=== PATIENT | female | born 1935 | race African-American/Black ===

== ENCOUNTER 2021-05-02 12:14 | Inpatient (IN) | payer OTHER, SELFPAY ==
[~2021-05-02] VITALS: Ht 154.9 cm; Wt 74.4 kg
--- NOTE | 2021-05-02 12:14 | NUR ---
Patient BIBA ALS from SNF, transferred to bed 8. RN evaluating the patient at bedside.
[2021-05-02 12:18] VITALS: BP 130/65
[2021-05-02] MEDS ORDERED: NACL 0.9% 1,000 ML IV SCH (12:20)
--- NOTE | 2021-05-02 12:30 | NUR ---
machine shop repair technician at bedside.
[2021-05-02] MEDS ORDERED: LORazepam 2 MG/ML VIAL IM/IVP ONE (12:55)
[2021-05-02] MEDS ORDERED: LORazepam 2 MG/ML VIAL IM ONE (12:55)
--- NOTE | 2021-05-02 13:00 | NUR ---
PT AGITATED UNABLE TO GET BLOOD, INSERT IV AND DO EKG. WILL CONTINUE TO MONITOR.
--- NOTE | 2021-05-02 13:03 | NUR ---
ATTEMPTED TO PREFORM AN EKG. PT REFUSED AND REMOVED LEADS AND ELECTRODES. ERMD NOTIFIED.
--- NOTE | 2021-05-02 13:22 | NUR ---
The patient's daughter and POA, Andria Steward, may be reached at [phone].
[2021-05-02 13:41] LABS: BASOPHILS % (AUTO) 0.8 % (0.0-2.0); EOSINOPHILS # (AUTO) 0.8 K/uL (0-0.4); EOSINOPHILS % (AUTO) 16.4 % (0.0-4.0); LYMPHOCYTES % (AUTO) 20.5 % (20.5-51.1); MEAN CORPUSCULAR HEMOGLOBIN 31 pg (27-31); MEAN CORPUSCULAR HGB CONC 33 g/dL (33-37); MEAN CORPUSCULAR VOLUME 94.7 fL (80-94); MONOCYTES # (AUTO) 0.5 K/uL (0.8-1.0); MONOCYTES % (AUTO) 10.2 % (1.7-9.3); NEUTROPHILS # (AUTO) 2.4 K/uL (1.8-7.7); NEUTROPHILS % (AUTO) 52.1 % (42.2-75.2); PLATELET COUNT (AUTO) 276 K/uL (140-450); RED BLOOD CELL COUNT(AUTO) 1.71 MIL/uL (4.20-5.40); RED CELL DISTRIBUTION WIDTH 16.9 % (11.6-13.7); WHITE BLOOD COUNT (AUTO) 4.7 K/uL (4.8-10.8)
[2021-05-02 13:47] LABS: HEMOGLOBIN 5.3 g/dL (12.0-16.0)
[2021-05-02 13:48] LABS: HEMATOCRIT 16.2 % (36-48)
[2021-05-02 14:02] LABS: PROTHROMBIN TIME 11.7 secs (10.8-13.4)
[2021-05-02 14:03] LABS: ALBUMIN 3.2 g/dL (3.4-5.0); ANION GAP 12.2 (8-16); ASPARTATE AMINOTRANSFERASE 20 U/L (15-37); CARBON DIOXIDE 25.5 mmol/L (21-32); CHLORIDE 109 mmol/L (98-107); CREATININE 0.7 mg/dL (0.6-1.3); GLUCOSE 118 mg/dL (74-106); POTASSIUM 3.7 mmol/L (3.5-5.1); SODIUM SERUM 143 mmol/L (136-145); TOTAL BILIRUBIN 0.2 mg/dL (0.0-1.0); UREA NITROGEN, BLOOD 32 mg/dL (7-18)
[2021-05-02] MEDS: NACL 0.9% 1,000 ML IV SCH (15:35)
[2021-05-02] MEDS ORDERED: ZOLPIDEM 5 MG TAB PO PRN (15:35)
[2021-05-02] MEDS ORDERED: LORazepam 2 MG/ML VIAL IM/IVP PRN (15:35)
[2021-05-02] MEDS ORDERED: MORPHINE SULFATE 2 MG/ML SYR IVP PRN (15:35)
[2021-05-02] MEDS ORDERED: ACETAMINOPHEN 325 MG TAB PO PRN (15:35)
[2021-05-02] MEDS ORDERED: ONDANSETRON 4 MG/2 ML VIAL IVP PRN (15:35)
[2021-05-02] MEDS ORDERED: DOCUSATE SODIUM 100 MG GELCAP PO PRN (15:35)
[2021-05-02] MEDS ORDERED: HYDROcodone/APAP 5/325 MG 1 TAB TAB PO PRN (15:35)
--- NOTE | 2021-05-02 15:37 | NUR ---
Notified Dr. Santana Adam of requested consultation.
[2021-05-02] MEDS ORDERED: HEPARIN PER PHARMACY MC PRN (15:40)
[2021-05-02 16:23] LABS: CHOL/HDL RATIO 1.8 (1-4.5); FREE T4 (FREE THYROXINE) 0.9 ng/dL (0.76-1.46); MAGNESIUM 1.8 mg/dL (1.8-2.4); PHOSPHORUS 3.1 mg/dL (2.5-4.9); THYROID STIMULATING HORMONE 3.24 uIU/mL (0.34-3.74)
[2021-05-02] MEDS ORDERED: hePARIN / DEXT 5% PREMIX 250 ML IV SCH (16:30)
--- NOTE | 2021-05-02 16:45 | NUR ---
Patient will be admitted to care of DR BARRIENTOS . Admited to TELE. Will go to room 120A. Belongings list completed. Report to LOREN FRAGOSO.
[2021-05-02 16:51] VITALS: BP 118/54
--- NOTE | 2021-05-02 16:51 | NUR ---
PT ARRIVED FROM THE ED ON GURNEY. PTS EYES CLOSED, NO SIGNS OF ACUTE DISTRESS. PT ALERT AND ORIENTED X 1, NAME. VITAL SIGNS WNL; 115/54, 52 HR, 100% O2, 14 RR, 98.1 TEMP. PT SHOWING VAHE ON FIELD SALES TRAINER. PT HAD A BOWEL MOVEMENT AND WAS CLEANED. PT HAS NO OPEN WOUNDS, SKIN INTACT. PT FLACC 0/10. PT HAS NO IV ACCESS, ORDER FOR A PICC LINE IN PLACE, CONSENT SIGNED. WAITING ON PICC LINE PERSONAL TO ARRIVE FOR PLACEMENT. UNABLE TO START HEPARIN DRIP OR START BLOOD TRANSFUSION UNTIL PICC LINE IS IN PLACE. PT ON CONTINUOS PULSE OX AND TELE MONITORING. PT ON ROOM AIR WITH NO SIGNS OF ACUTE DISTRESS SATING AT 100%. ALL SAFETY MEASURES IN PLACE, WILL CONTINUE TO MONITOR.
[2021-05-02] MEDS ORDERED: ASPI81CT51 PO (17:09)
[2021-05-02] MEDS ORDERED: LISI40TA8 PO (17:09)
[2021-05-02] MEDS ORDERED: CHOL500040 PO (17:09)
[2021-05-02] MEDS ORDERED: ATOR40TA PO (17:09)
[2021-05-02] MEDS ORDERED: ACET-1182 PO (17:09)
[2021-05-02] MEDS ORDERED: AMLO10TA PO (17:09)
[2021-05-02] MEDS ORDERED: QUET25TA PO (17:09)
[2021-05-02] MEDS ORDERED: MELO7.5T11 PO (17:09)
[2021-05-02] MEDS ORDERED: CLOP75TA55 PO (17:09)
[2021-05-02] MEDS ORDERED: DOCU-299 PO (17:09)
[2021-05-02] MEDS ORDERED: ACET-2619 PO (17:09)
[2021-05-02] MEDS ORDERED: BUS5 PO (17:09)
[2021-05-02] MEDS ORDERED: ESCI5TAB PO (17:09)
--- NOTE | 2021-05-02 17:41 | NUR ---
PT RESTING, STILL WAITING ON PICC LINE FOR PLACEMENT. PT IS RESTING WITH EYES CLOSE, CHEST RISING AND FALLING EVEN AND UNLABORED. ALL SAFETY MEASURES IN PLACE. CALL LIGHT WITHIN REACH. WILL CONTINUE TO MONITOR.
[2021-05-02 18:42] LABS: APPEARANCE,URINE CLEAR (CLEAR); BILIRUBIN,URINE NEGATIVE (NEGATIVE); BLOOD, URINE 1+ (NEGATIVE); COLOR,URINE YELLOW (YELLOW); LEUKOCYTE ESTERASE ,URINE TRACE (NEGATIVE); NITRITE, URINE NEGATIVE (NEGATIVE); PH,URINE 5.5 (5.0-9.0); UGLUCOSE NEGATIVE (NEGATIVE)
--- NOTE | 2021-05-02 18:46 | NUR ---
CAMMY FRAGOSO INITIATED IV ACCESS IN LEFT WRIST 22G, AND LEFT FOREARM 22G. BOTH IV SITES PATENT AND INTACT. 4 ATTEMPTS MADE. ABLE TO HOOK PT UP TO IV FLUIDS; NS @100ML/HR.
[2021-05-02 18:57] LABS: RBC,URINE 11-20 (MOD) /HPF (0-5)
[2021-05-02 19:02] LABS: BARBITURATE, URINE NEGATIVE ng/ml (NEG <=200); BENZODIAZEPINE, URINE NEGATIVE ng/mL (NEG <=200); CANNABINOID, URINE NEGATIVE ng/mL (NEG <=50); COCAINE, URINE NEGATIVE ng/mL (NEG <=300); OPIATE, URINE NEGATIVE ng/mL (NEG <=2000); PHENCYCLIDINE SCREEN,URINE NEGATIVE ng/mL (NEG <=25)
--- NOTE | 2021-05-02 19:24 | NUR ---
[facility], PT IS RESTING SATING AT 100%. ALL SAFETY MEASURES IN PLACE. WILL CONTINUE TO MONITOR.
--- NOTE | 2021-05-02 19:24 | NUR ---
RECEIVED PATIENT FROM AM SHIFT NURSE FOR CONTINUITY OF CARE. PATIENT LETHARGIC, UNABLE TO MAKE NEED KNOWN AT THIS TIME. RESPIRATIONS EVEN, UNLABORED. NO S/S RESPIRATORY DISTRESS. S1/S2 AUSCULTATED. TELE MONITORING. SKIN WARM, DRY. IV SITE TO LEFT FOREARM 22G PATENT/INTACT, INFUSING FLUIDS WELL. SALINE LOCK TO LEFT WRIT 22G PATENT/INTACT. ABDOMEN SOFT, NONTENDER, NONDISTENDED. BOWEL SOUNDS ACTIVE x4 QUADRANTS. PATIENT IS INCONTINENT OF B/B. PLAN OF CARE DISCUSSED. SAFETY PRECAUTIONS IN PLACE. CALL LIGHT IN REACH AT ALL TIMES.
--- NOTE | 2021-05-02 20:20 | NUR ---
1 UNIT OF PRBC STARTED. AFEBRILE. NO ADVERSE REACTION NOTED. FREQUENT ROUNDS BY ALL STAFF.
[2021-05-02] MEDS: ATORVASTATIN 20 MG TAB PO SCH (20:37)
[2021-05-02] MEDS: busPIRone 5 MG TAB PO SCH (20:37)
[2021-05-02 21:06] VITALS: BP 116/54
[2021-05-02] MEDS ORDERED: KETOROLAC 30 MG/ML VIAL IVP PRN (21:25)
--- NOTE | 2021-05-02 21:30 | NUR ---
PATIENT RESTING COMFORTABLY IN BED. CONTINUES ON BLOOD TRANSFUSION, TOLERATING WELL. CALL LIGHT IN REACH. SAFETY PRECAUTIONS IN PLACE.
--- NOTE | 2021-05-02 23:10 | NUR ---
1 UNIT OF PRBC COMPLETED WIT NO ADVERSE SIDE EFFECTS. PATIENT IS RESTING COMFORTABLY IN BED. CALL LIGHT IN REACH. SAFETY PRECAUTIONS IN PLACE.
--- NOTE | 2021-05-02 23:30 | NUR ---
INCONTINENT CARE RENDERED WITH TREE AND SHRUB WORKER AT BEDSIDE. NO S/S ACUTE DISTRESS. CALL LIGHT IN REACH. SAFETY PRECAUTIONS IN PLACE.
[2021-05-03] VITALS: BP 121/37
[2021-05-03] MEDS: NACL 0.9% 1,000 ML IV SCH ×2 (01:04→11:35)
--- NOTE | 2021-05-03 01:43 | NUR ---
PATIENT COMPLETED 2 UNITS OF PRBCS WITH NO ADVERSE REACTION. RESTING WELL IN BED. NO S/S ACUTE DISTRESS. CALL LIGHT IN REACH. SAFETY PRECAUTIONS IN PLACE.
--- NOTE | 2021-05-03 03:46 | NUR ---
MADE ROUNDS. PATIENT IS ASLEEP. NO S/S ACUTE DISTRESS. CALL LIGHT WITHIN REACH. SAFETY PRECAUTIONS IN PLACE.
[2021-05-03 04:00] VITALS: BP 126/75
[2021-05-03 04:11] LABS: BASOPHILS % (AUTO) 0.3 % (0.0-2.0); EOSINOPHILS # (AUTO) 0.5 K/uL (0-0.4); EOSINOPHILS % (AUTO) 5.1 % (0.0-4.0); HEMATOCRIT 20.4 % (36-48); LYMPHOCYTES # (AUTO) 0.7 K/uL (2.5-16.5); LYMPHOCYTES % (AUTO) 7.1 % (20.5-51.1); MEAN CORPUSCULAR HEMOGLOBIN 30 pg (27-31); MEAN CORPUSCULAR HGB CONC 34 g/dL (33-37); MEAN CORPUSCULAR VOLUME 90.8 fL (80-94); MONOCYTES % (AUTO) 9.6 % (1.7-9.3); NEUTROPHILS % (AUTO) 77.9 % (42.2-75.2); PLATELET COUNT (AUTO) 222 K/uL (140-450); RED BLOOD CELL COUNT(AUTO) 2.25 MIL/uL (4.20-5.40); RED CELL DISTRIBUTION WIDTH 15.8 % (11.6-13.7); WHITE BLOOD COUNT (AUTO) 10.3 K/uL (4.8-10.8)
[2021-05-03 04:16] LABS: HEMOGLOBIN 6.8 g/dL (12.0-16.0)
[2021-05-03 05:08] LABS: ANION GAP 9.4 (8-16); CARBON DIOXIDE 27.6 mmol/L (21-32); CHLORIDE 112 mmol/L (98-107); CREATININE 0.6 mg/dL (0.6-1.3); GLUCOSE 89 mg/dL (74-106); SODIUM SERUM 145 mmol/L (136-145); UREA NITROGEN, BLOOD 28 mg/dL (7-18)
[2021-05-03 05:16] LABS: PHOSPHORUS 3.2 mg/dL (2.5-4.9)
--- NOTE | 2021-05-03 05:28 | NUR ---
INCONTINENT CARE RENDERED WITH AGRONOMY TEACHER AT BEDSIDE. NO S/S ACUTE DISTRESS. CALL LIGHT IN REACH. SAFETY PRECAUTIONS IN PLACE.
--- NOTE | 2021-05-03 06:17 | NUR ---
1 UNIT OF PRBC STARTED. AFEBRILE. NO S/S ADVERSE REACTION. PATIENT AWAKE AND ABLE TO MAKE SIMPLE NEEDS KNOWN. CALL LIGHT IN REACH. SAFETY PRECAUTIONS IN PLACE.
--- NOTE | 2021-05-03 07:10 | NUR ---
RECEIVED REPORT FROM THERAPIST PHYSICAL RN FOR CONTINUITY OF CARE. PATIENT IS CONFUSED AND DROWSY. SR-SB ON MONITOR. ON RA. IVS CLEAN, DRY, AND INTACT ON LW 22 G SALINE LOCKED, AND LFA 22 G TRANSFUSING BLOOD AT 100 ML/HR. CLEARANCE REP AND SAFETY MEASURES IN PLACE. BED IN LOW POSITION, BED LOCKED, AND HEAD OF BED AT 30 DEGREES. WILL CONTINUE TO MONITOR.
[2021-05-03 08:00] VITALS: BP 155/70
[2021-05-03] MEDS ORDERED: NON-FORMULARY ITEM (Lisinopril 40 MG) PO SCH (09:00)
[2021-05-03] MEDS ORDERED: ASPIRIN 81 MG TAB.CHEW PO SCH (09:00)
[2021-05-03] MEDS ORDERED: amLODIPine 5 MG TAB PO SCH (09:00)
[2021-05-03] MEDS ORDERED: lisinopriL 20 MG TAB PO SCH (09:00)
[2021-05-03] MEDS ORDERED: NON-FORMULARY ITEM (Meloxicam* (Mobic*) 1 TAB) PO SCH (09:00)
[2021-05-03] MEDS ORDERED: CLOPIDOGREL 75 MG TAB PO SCH (09:00)
--- NOTE | 2021-05-03 09:09 | NUR ---
PATIENT HAS BEEN SCREENED AND CATEGORIZED LOW NUTRITION RISK. PATIENT WILL BE SEEN WITHIN 7 DAYS OF ADMISSION. 05/09/[address]
[2021-05-03] MEDS: busPIRone 5 MG TAB PO SCH ×2 (09:34→21:27)
[2021-05-03] MEDS: QUEtiapine FUMARATE 25 MG TAB PO SCH (09:35)
[2021-05-03] MEDS ORDERED: CRUSHER, PILL MC ONE (09:36)
[2021-05-03] MEDS: ESCITALOPRAM 20 MG TAB PO SCH (09:38)
--- NOTE | 2021-05-03 09:40 | NUR ---
ADMINISTERED SCHEDULED AM MEDICATIONS. ORAL CARE, HYGIENE CARE, INCONTINENCE CARE, AND CHG BATH PROVIDED. WILL CONTINUE TO MONITOR.
--- NOTE | 2021-05-03 10:05 | NUR ---
CATHERINE OG, DAUGHTER CALLED FOR AN UPDATE. DAUGHTER WAS UPDATED ON CONDITION AND STATUS. ALL QUESTIONS WERE ANSWERED TO BEST OF KNOWLEDGE. WILL CONTINUE TO MONITOR.
--- NOTE | 2021-05-03 11:26 | NUR ---
CRITICAL LAB, TROP 0.219, DR. BARRIENTOS AND DR. VELASQUEZ AWARE. NO CHANGE IN ORDERS. WILL CONTINUE TO MONITOR.
[2021-05-03 11:39] LABS: HEMATOCRIT 25.5 % (36-48); HEMOGLOBIN 8.6 g/dL (12.0-16.0)
[2021-05-03 12:00] VITALS: BP 124/62
--- NOTE | 2021-05-03 12:05 | NUR ---
Hold PT evaluation today due to low Hgb level and high Troponin. Nurse notified.
--- NOTE | 2021-05-03 13:52 | NUR ---
CHECKED ON PATIENT, NO SIGN OF DISTRESS AND FLACC 0. WILL CONTINUE TO MONITOR.
[2021-05-03 16:00] VITALS: BP 120/66
--- NOTE | 2021-05-03 16:55 | NUR ---
PATIENTS DAUGHTER CALLED STATING TALKED TO PATIENT, SAYING SHES IN PAIN, PAGED DR BARRIENTOS, ORDERED PAIN MEDS. WILL CONTINUE TO MONITOR.
[2021-05-03] MEDS ORDERED: KETOROLAC 30 MG/ML VIAL IVP PRN (17:10)
[2021-05-03] MEDS: LACTULOSE 20 GM/30 ML UDC PO SCH ×2 (17:24→21:27)
[2021-05-03] MEDS: SENNA 8.6 MG TAB PO SCH (17:25)
[2021-05-03] MEDS: MORPHINE SULFATE 2 MG/ML SYR IVP PRN (17:25)
--- NOTE | 2021-05-03 18:45 | NUR ---
CALLED PATIENT'S DAUGHTER, FRENCH GILLIAM, THAT YOU WOULD PREFER TO DO COLOSCOPY EDG AT AN OUTPATIENT. STATES PATIENT IS STRESSED AND DOES NOT WANT TO ADD ON MORE AT THIS TIME.
--- NOTE | 2021-05-03 19:09 | NUR ---
ENDORSED TO BRUCE FRAGOSO FOR CONTINUITY OF CARE.
--- NOTE | 2021-05-03 19:09 | NUR ---
RECEIVED PATIENT FROM RN FOR CONTINUITY OF CARE. ALERT AND ABLE TO MAKE SIMPLE NEEDS KNOWN. RESPIRATIONS EVEN, UNLABORED. NO S/S RESPIRATORY DISTRESS. S1/S2 AUSCULTATED. TELE MONITORING. SKIN WARM, DRY. IV SITE TO RIGHT WRIST 22G PATENT/INTACT, INFUSING FLUIDS WELL. NO C/O PAIN. NO S/S ACUTE DISTRESS. ABDOMEN SOFT, NONTENDER, NONDISTENDED. BOWEL SOUNDS ACTIVE X4 QUADRANTS. PATIENT IS INCONTINENT OF B/B. PLAN OF CARE DISCUSSED. SAFETY PRECAUTIONS IN PLACE. CALL LIGHT IN REACH AT ALL TIMES.
[2021-05-03 20:00] VITALS: BP 135/76
[2021-05-03] MEDS: ATORVASTATIN 20 MG TAB PO SCH (21:27)
--- NOTE | 2021-05-03 21:30 | NUR ---
DUE MEDS GIVEN. PATIENT RESTING COMFORTABLY IN BED. CALL LIGHT IN REACH. SAFETY PRECAUTIONS IN PLACE.
--- NOTE | 2021-05-03 23:37 | NUR ---
INCONTINENT CARE RENDERED WITH SNAP ATTACHER AT BEDSIDE. NO S/S ACUTE DISTRESS. CALL LIGHT IN REACH. SAFETY PRECAUTIONS IN PLACE.
[2021-05-04] VITALS: BP 139/60
--- NOTE | 2021-05-04 01:39 | NUR ---
MADE ROUNDS. PATIENT IS ASLEEP. CALL LIGHT IN REACH. SAFETY PRECAUTIONS IN PLACE.
--- NOTE | 2021-05-04 03:00 | NUR ---
INCONTINENT CARE RENDERED WITH SIGN WRITER HAND AT BEDSIDE.
[2021-05-04 04:00] VITALS: BP 145/75
--- NOTE | 2021-05-04 05:01 | NUR ---
PATIENT IS ASLEEP.
[2021-05-04 05:58] LABS: ANION GAP 11.9 (8-16); CARBON DIOXIDE 25.5 mmol/L (21-32); CHLORIDE 112 mmol/L (98-107); CREATININE 0.6 mg/dL (0.6-1.3); GLUCOSE 83 mg/dL (74-106); POTASSIUM 3.4 mmol/L (3.5-5.1); SODIUM SERUM 146 mmol/L (136-145); UREA NITROGEN, BLOOD 20 mg/dL (7-18)
[2021-05-04 06:05] LABS: BASOPHILS % (AUTO) 0.3 % (0.0-2.0); EOSINOPHILS # (AUTO) 0.9 K/uL (0-0.4); EOSINOPHILS % (AUTO) 7.9 % (0.0-4.0); HEMATOCRIT 24.4 % (36-48); LYMPHOCYTES # (AUTO) 0.6 K/uL (2.5-16.5); LYMPHOCYTES % (AUTO) 5.5 % (20.5-51.1); MEAN CORPUSCULAR HEMOGLOBIN 30 pg (27-31); MEAN CORPUSCULAR HGB CONC 33 g/dL (33-37); MEAN CORPUSCULAR VOLUME 91.9 fL (80-94); MONOCYTES % (AUTO) 9.2 % (1.7-9.3); NEUTROPHILS # (AUTO) 8.7 K/uL (1.8-7.7); NEUTROPHILS % (AUTO) 77.1 % (42.2-75.2); PLATELET COUNT (AUTO) 251 K/uL (140-450); RED BLOOD CELL COUNT(AUTO) 2.66 MIL/uL (4.20-5.40); RED CELL DISTRIBUTION WIDTH 15.9 % (11.6-13.7); WHITE BLOOD COUNT (AUTO) 11.3 K/uL (4.8-10.8)
[2021-05-04 06:09] LABS: MAGNESIUM 1.9 mg/dL (1.8-2.4); PHOSPHORUS 2.9 mg/dL (2.5-4.9)
--- NOTE | 2021-05-04 07:35 | NUR ---
RECEIVED BEDSIDE REPORT FROM NIGHTSHIFT NURSE. PT RESTING IN BED. ABLE TO MAKE SOME NEEDS KNOWN. RESPIRATIONS EVEN AND UNLABORED WITH NO SOB OR RESPIRATORY DISTRESS. SKIN WARM AND DRY TO TOUCH. SAFETY MEASURES IN PLACE. WILL CONTINUE TO MONITOR
--- NOTE | 2021-05-04 07:41 | NUR ---
PT WAS SEEN FOR DYSPHAGIA. PT WAS ABLE TO SAFELY SWALLOW PUREE DIET WITH THIN LIQUID WITHOUT S/S OF ASPIRATION. RECOMMENDATION PUREE DIET WITH THIN LIQUID
[2021-05-04 08:00] VITALS: BP 147/71
--- NOTE | 2021-05-04 08:53 | NUR ---
PT. ADMITTED WITH LOW PADMA SCALE AT HIGH RISK, CONTINUE TO FOLLOW PRESSURE INJURY PREVENTION INTERVENTIONS. -TURN AND REPOSITION PATIENT Q 2H -ASSESS AND MONITOR SKIN CONDITION DURING POSITION CHANGE -OFFLOAD BILATERAL HEELS BY PLACING PILLOWS UNDER CALVES AT ALL TIMES, UNLESS OTHERWISE CONTRAINDICATED -PRESSURE REDISTRIBUTION BY PLACING PILLOWS AND OFFLOADING SACRALCOCCYX -KEEP SKIN CLEAN AND DRY AT ALL TIMES.
[2021-05-04] MEDS: LACTULOSE 20 GM/30 ML UDC PO SCH ×4 (09:00→21:00)
[2021-05-04] MEDS: SENNA 8.6 MG TAB PO SCH ×3 (09:00→17:00)
[2021-05-04] MEDS: ESCITALOPRAM 20 MG TAB PO SCH (09:38)
[2021-05-04] MEDS: QUEtiapine FUMARATE 25 MG TAB PO SCH (09:39)
[2021-05-04] MEDS: busPIRone 5 MG TAB PO SCH ×2 (09:39→21:00)
--- NOTE | 2021-05-04 09:45 | NUR ---
ADMINISTERED SCHED MED PRESCRIBED PER MD ORDER. PT TOLERATED WELL. MEDICATION EDUCATION PERFORMED. PT CONFUSED AND UNABLE TO VERBALIZE UNDERSTANDING. SAFETY MEASURES IN PLACE. WILL CONTINUE TO MONITOR
--- NOTE | 2021-05-04 10:15 | NUR ---
PT PULLED OUT IV AND IS A HARD STICK AFTER NUMEROUS ATTEMPTS. PICC LINE NURSE CALLED AND WILL BE HERE SOON. SAFETY MEASURES IN PLACE. WILL CONTINUE TO MONITOR
--- NOTE | 2021-05-04 11:15 | NUR ---
SARAN THE PICC LINE NURSE AT [facility]. TIME OUT PERFORMED. PT HAS NEWLY INSERTED MID LINE IN BASSAM. US AT BEDSIDE. PT TOLERATED WELL. SAFETY MEASURES IN PLACE. WILL CONTINUE TO MONITOR
[2021-05-04] MEDS: NACL 0.9% 1,000 ML IV SCH (11:49)
[2021-05-04] MEDS ORDERED: KETOROLAC 15 MG/ML VIAL IVP PRN (11:50)
[2021-05-04 12:07] LABS: FOLIC ACID 10.5 ng/mL (>3.0)
--- NOTE | 2021-05-04 14:00 | NUR ---
DAUGHTER CALLED AND WANTED AN UPDATE. UPDATE GIVEN. SAFETY MEASURES IN PLACE. WILL CONTINUE TO MONITOR
[2021-05-04 16:00] VITALS: BP 104/65
--- NOTE | 2021-05-04 16:00 | NUR ---
WENT TO CALL FOR REPORT AT [facility] BUT THE PREASSEMBLER PRINTED CIRCUIT BOARD SAID THE NURSE IS BUSY. LEFT NAME AND PHONE NUMBER AND TO CALL BACK IN 15 MIN. WILL CONTINUE TO MONITOR Addendum: 05/04/21 at 1737 by Janay Negro RN DISREGARD NOTE
--- NOTE | 2021-05-04 16:15 | NUR ---
CALLED TO GIVE REPORT AGAIN AT [facility] YET THE TRAY SETTER SAID THE NURSE IS STILL BUSY. SAFETY MEASURES IN PLACE. WILL CONTINUE TO MONITOR Addendum: 05/04/21 at 1737 by Janay Negro RN DISREGARD NOTE
--- NOTE | 2021-05-04 16:15 | NUR ---
PT ASLEEP IN BED. RESPONSIVE TO VERBAL AND TACTILE STIMULI. SAFETY MEASURES IN PLACE. WILL CONTINUE TO MONITOR
--- NOTE | 2021-05-04 16:30 | NUR ---
TRANSPORT TEAM HERE AT BEDSIDE TO TAKE PATIENT. PT SIGNED APPROPRIATE DOCUMENTS. INSTRUCTED PT TO VISIT ED FOR ANY SIGNS OF DISTRESS. PT VERBALIZED UNDERSTANDING. REMOVED INTACT IV CANNULA. RETURNED TELE MONITOR AND RETURNED TO SERVICES MANAGER. PT UP TO DATE ON VACCINES. GAVE PATIENT SURGICAL MASK. CHART ALREADY MADE FOR KARINE TRIPATHI. TRIED CALLING KARINE TRIPATHI AGAIN FOR REPORT BUT THE WOOD ENGRAVER SAID THAT SHE IS BUSY. LEFT PHONE NUMBER FOR NURSE TO CALL ONCE SHE IS READY. GATHERED ALL OF PATIENTS BELONGINGS. PT STABLE TO GO BACK TO KARINE TRIPATHI Addendum: 05/04/21 at 1737 by Janay Negro RN DISREGARD NOTE
[2021-05-04] MEDS: lisinopriL 10 MG TAB PO SCH ×2 (17:00→21:35)
--- NOTE | 2021-05-04 17:15 | NUR ---
PT ATTEMPTING TO CLIMB OUT OF BED. PT AAOX1-2. EDUCATED PT TO NOT GET OUT OF BED. PT CONFUSED. BED ALARM ON. SAFETY MEASURES IN PLACE. WILL CONTINUE TO MONITOR
--- NOTE | 2021-05-04 18:34 | NUR ---
DAUGHTER AT BEDSIDE WANTING ANOTHER UPDATE. UPDATE GIVEN. REQUESTING DR. BARRIENTOS, DR. BARRIENTOS AT BEDSIDE TALKING TO FAMILY FOR MORE THAN [address] MIN[address] ME[address] WILL CONTINUE TO MONITOR
--- NOTE | 2021-05-04 19:30 | NUR ---
ENDORSED TO NIGHTSHIFT NURSE AT BEDSIDE FOR CONTINUITY OF CARE. PT IS STABLE
--- NOTE | 2021-05-04 19:31 | NUR ---
RECEIVED BEDSIDE ENDORSEMENT FROM AM SHIFT RN. DAUGHTER IS AT BEDSIDE, ON ROOM AIR, AAOX1 TO PERSON, HAS HX OF DEMENTIA, BEDREST, W/ BASSAM MIDLINE, INTACT, SAFETY MEASURES IN PLACE, PLAN OF CARE DISCUSSED, WILL CONTINUE TO MONITOR, CALL LIGHT WITHIN REACH.
[2021-05-04] MEDS: MORPHINE SULFATE 2 MG/ML SYR IVP PRN (20:41)
[2021-05-04] MEDS: ATORVASTATIN 20 MG TAB PO SCH (21:34)
--- NOTE | 2021-05-04 21:46 | NUR ---
BUSPAR NOT GIVEN, PER DAUGHTER REQUEST, LACTULOSE NOT GIVEN, PT HAD A LARGE BM. LISINOPRIL GIVEN BECAUSE IT WASN'T GIVEN THIS AM, PER DAUGHTER REQUEST, DR. BARRIENTOS AWARE AND SAID OK TO GIVE.
--- NOTE | 2021-05-04 23:05 | NUR ---
PERINEAL CARE RENDERED, KEPT CLEAN AND DRY, APPLIED LOTION TO BACK, CHEST AND ARMS. KEPT COMFORTABLE, CALL LIGHT WITHIN REACH.
[2021-05-05] VITALS: BP 140/64
--- NOTE | 2021-05-05 01:00 | NUR ---
ASLEEP, RESPIRATION EVEN AND UNLABORED, NOTED CHEST RISE. WILL MONITOR, CALL LIGHT WITHIN REACH.
--- NOTE | 2021-05-05 03:06 | NUR ---
REPOSITIONED, GAVE WARM BLANKET, KEPT COMFORTABLE, CALL LIGHT WITHIN REACH.
--- NOTE | 2021-05-05 05:15 | NUR ---
PT ASLEEP, NOTED CHEST RISE, CALL LIGHT WITHIN REACH.
[2021-05-05 05:52] LABS: ANION GAP 12.6 (8-16); CARBON DIOXIDE 26.8 mmol/L (21-32); CHLORIDE 112 mmol/L (98-107); CREATININE 0.7 mg/dL (0.6-1.3); GLUCOSE 125 mg/dL (74-106); POTASSIUM 3.4 mmol/L (3.5-5.1); SODIUM SERUM 148 mmol/L (136-145); UREA NITROGEN, BLOOD 19 mg/dL (7-18)
[2021-05-05 05:54] LABS: BASOPHILS % (AUTO) 0.4 % (0.0-2.0); EOSINOPHILS # (AUTO) 0.8 K/uL (0-0.4); EOSINOPHILS % (AUTO) 6.7 % (0.0-4.0); HEMATOCRIT 25.6 % (36-48); HEMOGLOBIN 8.4 g/dL (12.0-16.0); LYMPHOCYTES # (AUTO) 1.1 K/uL (2.5-16.5); LYMPHOCYTES % (AUTO) 9.3 % (20.5-51.1); MAGNESIUM 1.9 mg/dL (1.8-2.4); MEAN CORPUSCULAR HEMOGLOBIN 30 pg (27-31); MEAN CORPUSCULAR HGB CONC 33 g/dL (33-37); MEAN CORPUSCULAR VOLUME 92.1 fL (80-94); MONOCYTES # (AUTO) 1.5 K/uL (0.8-1.0); MONOCYTES % (AUTO) 12.5 % (1.7-9.3); NEUTROPHILS # (AUTO) 8.6 K/uL (1.8-7.7); NEUTROPHILS % (AUTO) 71.1 % (42.2-75.2); PHOSPHORUS 2.6 mg/dL (2.5-4.9); PLATELET COUNT (AUTO) 249 K/uL (140-450); RED BLOOD CELL COUNT(AUTO) 2.78 MIL/uL (4.20-5.40); WHITE BLOOD COUNT (AUTO) 12.1 K/uL (4.8-10.8)
[2021-05-05] MEDS ORDERED: POTASSIUM CHLORIDE 10 MEQ TABER PO SCH (07:30)
--- NOTE | 2021-05-05 07:30 | NUR ---
STABLE. BEDSIDE ENDORSEMENT GIVEN TO AM SHIFT RN FOR CONTINUITY OF CARE.
[2021-05-05 08:00] VITALS: BP 141/77
[2021-05-05] MEDS ORDERED: POTASSIUM CHLORIDE 20% 40 MEQ/15 ML UDC PO SCH (08:00)
--- NOTE | 2021-05-05 08:30 | NUR ---
DR MANNING AT BEDSIDE FOR EVAL, REPORTED OF ITCHNESS, ORDER RECEIVED.
[2021-05-05] MEDS ORDERED: HYDROCORTISONE 1% CRM 30 GM TUBE TP PRN (08:40)
[2021-05-05] MEDS: ESCITALOPRAM 20 MG TAB PO SCH (09:02)
[2021-05-05] MEDS: NACL 0.9% 1,000 ML IV SCH (09:02)
[2021-05-05] MEDS: QUEtiapine FUMARATE 25 MG TAB PO SCH (09:03)
--- NOTE | 2021-05-05 09:05 | NUR ---
EATING BREAKFAST WITH CLOCK MAKER ASSIST, MEDICATION GIVEN PER ORDER PT GUERRERO WELL.
[2021-05-05] MEDS ORDERED: CEPH250C16 PO (10:36)
--- NOTE | 2021-05-05 10:44 | NUR ---
BEDBATH GIVEN WITH SWEATBAND CUTTING MACHINE OPERATOR, HYDROCORTISONE CREAM APPLIED TO ITCHY AREA ON ARMS, SHOULDER, NECK, CHEST, SIDES, BACK.
--- NOTE | 2021-05-05 10:51 | NUR ---
PT C/O RIGHT SHOULDER AND BACK PAIN, WANTS PAIN MED BEFORE PT, TORADOL GIVEN PER PRN ORDER.
--- NOTE | 2021-05-05 10:52 | NUR ---
DC PLANNING: SPOKE WITH PT'S DAUGHTER DISCUSSED THE ISSUES AND CONCERN FOR HER MOM NOT GETTING ENOUGH CARE AND WANTED HER MOM TO GO TO SNF WHICH IS CLOSER TO [place] WHERE SHE LIVES. PER FRENCH HER 1ST CHOICE IN [place] [facility] [facility] AND [facility]. CALLED KRISTI SINGH LEFT A MESSAGE. CM TO FOLLOW Addendum: 05/05/21 at 1617 by Francie Burk RN DC PLANNING: SPOKE WITH KRISTI SINGH STATED THERE ARE NO SNF CONTRACTED FOR THE 3 PLACES. PT CAN GO TO [facility], [facility] AND [facility]. CALLED PT DAUGHTER PROVIDE THE 3 CHOICES PER JILL CHOSE [facility]. KRISTI PROVIDE AUTH FOR SNF AND TRANSPORT. #[id number] . PT CAN GO TO ROOM # 257A PT WILL BE DC ONCE CARDIO CLEARS PT. MAXINE TO FOLLOW
--- NOTE | 2021-05-05 11:41 | NUR ---
ON TELE MONITOR, PT HAS SLOW AFIB WITH OCCASIONAL LONG PAUSE, HR DIPS DOWN LOW 39, BP WNL, DR MANNING NOTIFIED, EKG ORDER RECEIVED.
[2021-05-05 12:00] VITALS: BP 114/68
--- NOTE | 2021-05-05 12:25 | NUR ---
ELIDA HERRERA AT BEDSIDE
--- NOTE | 2021-05-05 14:02 | NUR ---
PT SLEEPING QUIETLY IN NO ACUTE DISTRESS AROUSES TO VOICE.
[2021-05-05 16:00] VITALS: BP 102/58
--- NOTE | 2021-05-05 16:02 | NUR ---
DR ADAMS AT BEDSIDE, NOTIFIED OF OCCASIONAL DIP IN HEART RATE TO 34 AFIB.
--- NOTE | 2021-05-05 16:30 | NUR ---
PER RATE CLERK ROBERT, PT'S DAUGHTER REFUSES THE [facility], HOLD DC AT THIS TIME, DR MANNING AWARE
--- NOTE | 2021-05-05 19:25 | NUR ---
RECEIVED REPORT FROM AM NURSE. PATIENT AWAKE IN BED RESTING. IVF OF NS AT 20 ML/HR ON THE BASSAM MIDLINE INFUSING WELL. NO SOB NOTED. DENIES PAIN. WILL CONTINUE TO MONITOR.
--- NOTE | 2021-05-05 22:05 | NUR ---
ADMINISTERED MEDS PER MD ORDERED. PATIENT IS ITCHING , APPLIED HYDROCORTISONE CREAM ON HER BACK .
[2021-05-05] MEDS: ATORVASTATIN 20 MG TAB PO SCH (22:07)
[2021-05-05] MEDS: busPIRone 5 MG TAB PO SCH (22:08)
--- NOTE | 2021-05-06 02:55 | NUR ---
MADE ROUNDS, PATIENT SLEEPING.
--- NOTE | 2021-05-06 04:35 | NUR ---
PATIENT PULLED OUT MIDLINE. INSERTED IV LINE ON THE LEFT FOREARM, WRAP WITH KERLIX.
--- NOTE | 2021-05-06 07:17 | NUR ---
ENDORSED TO AM NURSE FOR CONTINUITY OF CARE. PATIENT STABLE.
--- NOTE | 2021-05-06 07:35 | NUR ---
BEDSIDE REPORT RECEIVED FROM LAYBOY TENDER NURSE, PT SLEEPING QUIETLY IN NO ACUTE DISTRESS, AROUSES TO VOICE, ORIENTED TO SELF, PT DENIES PAIN, FOLLOWS COMMANDS, RESPEVEN, UNLABORED, ON RA, SKIN WARM DRY COLOR WNL, CAP REFILL < 3 SEC, PIV TO LFA, SITE WNL, ABD SOFT, NON DISTENDED, PLAN OF CARE REVIEWED, ALL SAFETY MEASURES IN PLACE, WILL CONTINUE TO MONTIOR
[2021-05-06 08:00] VITALS: BP 158/69
[2021-05-06] MEDS: QUEtiapine FUMARATE 25 MG TAB PO SCH (08:32)
[2021-05-06] MEDS: lisinopriL 10 MG TAB PO SCH (08:32)
[2021-05-06] MEDS: ESCITALOPRAM 20 MG TAB PO SCH (08:32)
--- NOTE | 2021-05-06 08:45 | NUR ---
AM MEDS GIVEN CRUSHED WITH PUREE BREAKFAST, GUERRERO 75% OF BREAKFAST WITH ASSIST FEEDING, TYLENOL GIVEN FOR C/O TORRES
--- NOTE | 2021-05-06 08:55 | NUR ---
PT AT BEDSIDE
--- NOTE | 2021-05-06 09:05 | NUR ---
DR MANNING AT BS
--- NOTE | 2021-05-06 10:17 | NUR ---
[place] [phone] CONTACTED FOR CELL TENDER TIME, RN ER NOT AVAILABLE NOW, WILL CALL US BACK PER WYATT.
--- NOTE | 2021-05-06 10:21 | NUR ---
DAUGHTER FRENCH UPDATED WITH PT CONDITION AND PLAN OF CARE
[2021-05-06 11:00] VITALS: BP 138/68
--- NOTE | 2021-05-06 11:20 | NUR ---
PT ASSITED TO WHEEL CHAIR AND TO THE VAN, TAKEN BACK TO [facility] WITH THEIR NETWORK/TELECOM ENGINEER.
[2021-05-06 11:30] LABS: BASOPHILS % (AUTO) 0.2 % (0.0-2.0); EOSINOPHILS # (AUTO) 1.3 K/uL (0-0.4); EOSINOPHILS % (AUTO) 16.7 % (0.0-4.0); HEMATOCRIT 23.4 % (36-48); HEMOGLOBIN 7.7 g/dL (12.0-16.0); LYMPHOCYTES # (AUTO) 0.6 K/uL (2.5-16.5); LYMPHOCYTES % (AUTO) 8.2 % (20.5-51.1); MEAN CORPUSCULAR HEMOGLOBIN 31 pg (27-31); MEAN CORPUSCULAR HGB CONC 33 g/dL (33-37); MEAN CORPUSCULAR VOLUME 93.1 fL (80-94); MONOCYTES # (AUTO) 0.9 K/uL (0.8-1.0); NEUTROPHILS % (AUTO) 63.9 % (42.2-75.2); PLATELET COUNT (AUTO) 242 K/uL (140-450); RED BLOOD CELL COUNT(AUTO) 2.51 MIL/uL (4.20-5.40); RED CELL DISTRIBUTION WIDTH 16.2 % (11.6-13.7); WHITE BLOOD COUNT (AUTO) 7.8 K/uL (4.8-10.8)
[2021-05-06 11:40] LABS: ANION GAP 14.2 (8-16); CARBON DIOXIDE 24.6 mmol/L (21-32); CHLORIDE 113 mmol/L (98-107); CREATININE 0.6 mg/dL (0.6-1.3); GLUCOSE 127 mg/dL (74-106); POTASSIUM 3.8 mmol/L (3.5-5.1); SODIUM SERUM 148 mmol/L (136-145); UREA NITROGEN, BLOOD 22 mg/dL (7-18)
[2021-05-06 11:41] LABS: MAGNESIUM 1.9 mg/dL (1.8-2.4); PHOSPHORUS 2.8 mg/dL (2.5-4.9)
--- NOTE | 2021-05-06 11:46 | NUR ---
CALLED DAUGHTER FRENCH AND KARINE DUBON WITH DISCHARGE INSTRUCTION. PER WYATT, THEY WILL HAVE INNOVAGE TAKE CARE OF DISCHARGE MEDS AND FOLLOW UP.
== END 2021-05-06 11:22 | DRG 377 ==
LOC: MED 12:14 → MTU 15:30
PROVIDERS: ADMIT Family Medicine; ATTEND Family Medicine
PROC: 30233N1 Transfusion of Nonautologous Red Blood Cells into Peripheral Vein, Percutaneous Approach (ICD-10-PCS; principal; 2021-05-02)
PROC: 05HY33Z Insertion of Infusion Device into Upper Vein, Percutaneous Approach (ICD-10-PCS; 2021-05-04)
PROC: B54MZZA Ultrasonography of Right Upper Extremity Veins, Guidance (ICD-10-PCS; 2021-05-04)
DX: K92.2 Gastrointestinal hemorrhage, unspecified (principal); I21.A1 Myocardial infarction type 2; E44.1 Mild protein-calorie malnutrition; D62 Acute posthemorrhagic anemia; Z20.822 Contact with and (suspected) exposure to COVID-19; F03.90 Unspecified dementia, unspecified severity, without behavioral disturbance, psychotic disturbance, mood disturbance, and anxiety; I10 Essential (primary) hypertension; I25.10 Atherosclerotic heart disease of native coronary artery without angina pectoris; I48.91 Unspecified atrial fibrillation; E78.5 Hyperlipidemia, unspecified; F29 Unspecified psychosis not due to a substance or known physiological condition; Z88.5 Allergy status to narcotic agent; Z88.0 Allergy status to penicillin; Z88.8 Allergy status to other drugs, medicaments and biological substances; Z86.73 Personal history of transient ischemic attack (TIA), and cerebral infarction without residual deficits; Z68.31 Body mass index [BMI] 31.0-31.9, adult
CPT/HCPCS: 36415; 36430; 71045; 73200; 80048; 80053; 80305; 81001; 82150; 82607; 82728; 82746; 82977; 83036; 83540; 83690; 83735; 83880; 84100; 84439; 84443; 84484; 85018; 85025; 85045; 85610; 85730; 86886; 86900; 86901; 86920; 87081; 87086; 92610; 92700; 93005; 96372; 97110; 97112; 97163-GP; 97530; 99285; J1885; J2060; J2270; P9016

== ENCOUNTER 2022-04-14 20:27 | Emergency (ER) | payer OTHER ==
[~2022-04-14] VITALS: Ht 162.6 cm; Wt 49.9 kg
[~2022-04-14 20:27] MED LIST: ACET-1182 PO; AMLO10TA PO; ASPI81CT51 PO; ATOR40TA PO; BUS5 PO; CEPH250C16 PO; CHOL500040 PO; CLOP75TA55 PO; DOCU-299 PO; ESCI5TAB PO; LISI40TA8 PO; MELO7.5T11 PO; QUET25TA PO
--- NOTE | 2022-04-14 20:27 | NUR ---
2022: Pt arrived with BVM in place and and compressions being intitated by [facility]. MAICO Evans, RT, EMT at bedside.
--- NOTE | 2022-04-14 20:30 | NUR ---
Time of called by MAICO Evans.
--- NOTE | 2022-04-14 20:37 | NUR ---
[facility] called and demographics given, per dispatch will call back for further details.
--- NOTE | 2022-04-14 20:40 | NUR ---
[facility] called and spoke with Nancy. Per Nancy body was released and case # [id number].
--- NOTE | 2022-04-14 20:54 | NUR ---
MAICO Evans able to get a hold of daughter/georgie Ayers and notified her of patient .
--- NOTE | 2022-04-14 20:56 | NUR ---
Spoke with Deputy Webb from [facility] to give further information on patient, to call back later.
--- NOTE | 2022-04-14 21:17 | NUR ---
Spoke with Sarahi Webb and body was released by [facility]. Reference # [id number].
--- NOTE | 2022-04-14 22:14 | NUR ---
Daughter asked to wait to pick Mortuary, will speak to brother to find out which [facility] to pick.
--- NOTE | 2022-04-15 00:16 | NUR ---
Attempted to called daughter to see if she has picked a [facility], no response, voicemail left.
--- NOTE | 2022-04-15 01:35 | NUR ---
Spoke with daughter and she gave verbal consent over the phone for patient to be released to [facility]. Called mortuary and no response. voicemail left.
--- NOTE | 2022-04-15 01:45 | NUR ---
Post mortem care provided with assistance from Viral SMITH.
--- NOTE | 2022-04-15 02:10 | NUR ---
Patient transfered to BED 126A in [facility].
--- NOTE | 2022-04-15 02:52 | NUR ---
Spoke with Santosh from [facility]. Unable to give ETA on when body will be transported at this time.
--- NOTE | 2022-04-15 04:05 | NUR ---
[facility] Ojeda in BED 126 to berry picker remains.
== END 2022-04-14 20:30 ==
LOC: MED 20:27
DX: I46.9 Cardiac arrest, cause unspecified (principal); I10 Essential (primary) hypertension; F03.90 Unspecified dementia, unspecified severity, without behavioral disturbance, psychotic disturbance, mood disturbance, and anxiety; Z86.73 Personal history of transient ischemic attack (TIA), and cerebral infarction without residual deficits; Z79.899 Other long term (current) drug therapy; Z79.01 Long term (current) use of anticoagulants; Z79.82 Long term (current) use of aspirin; Z79.2 Long term (current) use of antibiotics; Z88.5 Allergy status to narcotic agent; Z88.0 Allergy status to penicillin; Z88.2 Allergy status to sulfonamides; Z88.8 Allergy status to other drugs, medicaments and biological substances
CPT/HCPCS: 92950; 99285